=== PATIENT | male | born 1945 | race Caucasian/White ===

== ENCOUNTER → 2016-09-19 | Outpatient (CLI) | payer BC ==
--- NOTE | 2016-09-19 15:55 | US ---
EXAMINATION TYPE: US venous doppler duplex LE LT DATE OF EXAM: 09/19/2016 3:34 PM COMPARISON: NONE CLINICAL HISTORY: I80.9Phlebitis and thrombophlebitis of unspecified. pain, swelling, and redness of of left leg. SIDE PERFORMED: left VESSELS IMAGED: External Iliac Vein (EIV) Common Femoral Vein Deep Femoral Vein Greater Saphenous Vein * Femoral Vein Popliteal Vein Small Saphenous Vein * Proximal Calf Veins (* superficial vessels) TECHNOLOGIST IMPRESSION: node noted left groin measuring 2.9 x 1.0 cm. Left Leg: Negative for DVT IMPRESSION: 1. No ultrasound evidence of deep venous thrombosis left lower extremity. 2. Note is made of the somewhat prominent lymph node in the left inguinal region measuring 2.9 x 1.0 cm.
[2016-09-19 16:15] LABS: CH 33.1; CHCM 32.8; HCT 42.4 % (39.0-53.0); HDW 2.32; HGB 13.9 gm/dL (13.0-17.5); MCH 33.2 pg (25.0-35.0); MCHC 32.7 g/dL (31.0-37.0); MCV 101.6 fL (80.0-100.0); Mean Platelet Volume 8.3; RBC 4.17 m/uL (4.30-5.90); RDW 12.3 % (11.5-15.5)
[2016-09-19 16:23] LABS: ALT 43 U/L (21-72); AST 30 U/L (17-59); Alkaline Phosphatase 94 U/L (38-126); Anion Gap 11 mmol/L; Blood Urea Nitrogen 25 mg/dL (9-20); Calcium 8.9 mg/dL (8.4-10.2); Carbon Dioxide 26 mmol/L (22-30); Chloride 103 mmol/L (98-107); Glucose 96 mg/dL (74-99); Non-African American GFR(MDRD) 60 (>60 ml/min/1.73 sqM); Potassium 4.5 mmol/L (3.5-5.1); Sodium 140 mmol/L (137-145); Total Bilirubin 0.7 mg/dL (0.2-1.3); Total Protein 6.3 g/dL (6.3-8.2)
[2016-09-19 16:37] LABS: INR 0.9 (<1.1); Prothrombin Time 9.7 sec (9.0-12.0)
[2016-09-19 17:21] LABS: Erythrocyte Sedimentation Rate 78 mm/hr (0-15)
== END | disposition home or self-care (01) ==
LOC: RADUSMAIN 15:06
PROVIDERS: ATTEND Internal Medicine
DX: I80.9 Phlebitis and thrombophlebitis of unspecified site (principal); L03.114 Cellulitis of left upper limb
CPT/HCPCS: 80053; 85027; 85610; 85652; 85730